=== PATIENT | female | born 1960 | race American Indian/Alaskan Native ===

== ENCOUNTER 2020-09-07 06:30 | Day surgery (SDC) | payer OTHER ==
[2020-09-07] MEDS ORDERED: SODIUM CHLORIDE 0.9% 1000 ML 1,000 ML IV SCH (07:00)
--- NOTE | 2020-09-07 08:03 | Anesthesia Consultation ---
Anesthesia Consult and Med Hx Date of service: 09/07/20 - Airway Anesthetic Teeth Evaluation: Dentures ROM Head & Neck: Adequate Mental/Hyoid Distance: Adequate Mallampati Class: Class II Intubation Access Assessment: Probably Good - Pre-Operative Health Status ASA Pre-Surgery Classification: ASA2 - Pulmonary Hx Smoking: No Hx Asthma: No Hx Respiratory Symptoms: No SOB: No COPD: No Home Oxygen Therapy: No Hx Pneumonia: No Hx Sleep Apnea: No - Cardiovascular System Hx Hypertension: No Hx Coronary Artery Disease: No Hx Heart Attack/AMI: No Hx Angina: No Hx Percutaneous Transluminal Coronary Angioplasty (PTCA): No Hx Cardia Arrhythmia: No Hx Pacemaker: No Hx Internal Defibrillator: No Hx Valvular Heart Disease: No Hx Heart Murmur: No Hx Peripheral Vascular Disease: No - Central Nervous System Hx Neuromuscular Disorder: No Hx Seizures: No CVA: No Hx Back Pain: Yes (arthritis L-5 - S1 fusion) Hx Psychiatric Problems: Yes (PTSD) - Gastrointestinal Hx Ulcer: No Hx Gastroesophageal Reflux Disease: Yes - Endocrine Hx Renal Disease: No Hx End Stage Renal Disease: No Hx Cirrhosis: No Hx Liver Disease: No Hx Insulin Dependent Diabetes: No Hx Non-Insulin Dependent Diabetes: No Hx Thyroid Disease: No Hx Hypothyroidism: No Hx Hyperthyroidism: No - Hematic Hx Anemia: No Hx Sickle Cell Disease: No - Other Systems Hx Alcohol Use: No Hx Substance Use: No Hx Cancer: No Hx Obesity: No
--- NOTE | 2020-09-07 08:05 | Anesthesia Day of Surgery ---
Anesthesia Day of Surgery - Day of Surgery Patient Examined: Yes Patient H&P Reviewed: Yes Patient is NPO: Yes
[2020-09-07] MEDS ORDERED: WATER FOR IRRIG STERILE 1,000 ML BOTTLE ONE (08:21)
[2020-09-07] MEDS ORDERED: WATER FOR IRRIG STERILE 250 ML BOTTLE IR ONE (08:21)
[2020-09-07] MEDS ORDERED: propofoL 200 MG/20 ML VIAL IV ONE ×3 (08:27→09:04)
[2020-09-07] MEDS ORDERED: LIDOCAINE MPF (2%) 20 MG/1 ML VIAL 5 ML ONE (08:27)
--- NOTE | 2020-09-07 09:23 | Procedure Note ---
Date of procedure: 09/07/20 Pre-op diagnosis: Colon Polyp screening Post-op diagnosis: other (Multiple Colon Polyps (Proximal colon, Proximal Transverse Colon and Proximal Descending Colon)/ Scattered,Extensive Diverticular disease/ Minor,Internal Hemorrhoids) Procedure: Colonoscopy with Cold Biopsy and Cold Snare,Polypectomy and Ablation of Polyps Anesthesia: MAC Surgeon: MONICA ALLEN Estimated blood loss: minimal Pathology: list Specimen disposition: to lab Condition: stable Disposition: same day (Avoid aspirin and NSAID and anticoagulants for 5 days, otherwise resume home medications. Encourage fiber intake and follow up in i to 2 weeks ([phone]).)
--- NOTE | 2020-09-07 09:24 | Operative Report ---
PROCEDURE: Colonoscopy with cold snare polypectomy and cold biopsy and ablation of polyps done. INDICATIONS: This is a 60-year-old -[place] female who had a colonoscopy done as part of colon polyp screening, possible prior history of colon polyps and diverticular disease. DESCRIPTION OF PROCEDURE: The procedure was done after getting informed consent with MAC anesthesia. Initial rectal exam was unremarkable. Instrument was passed through the rectum onto the cecum, which was identified with ileocecal valve and the appendiceal orifice. Visualization was fair to good. The cecum was also examined on the retroverted view and the terminal ileum was intubated and it showed normal mucosa. There were 2 polyps noted in the cecum, one was a small polyp, probably about 6 mm in diameter, removed by cold biopsy and the other was a 9 mm sessile polyp removed by cold snare polypectomy and then retrieved. The remaining part of the cecum and the ascending colon besides the 2 polyps was normal. There were a few scattered diverticula that were noted throughout the colon, also seen in the proximal colon. In the proximal transverse colon, there was a 7-8 mm polyp that was removed by cold biopsy. The remaining part of the transverse colon showed a few scattered diverticula. In the proximal left colon close to the splenic flexure, there were 2 polyps, one was small and the other was elongated. It was raised with injection of normal saline, but could not be grabbed properly and was fulgurated using heat as well as a small polyp that was adjacent to it. There was minimal bleeding associated with the procedure. The remaining part of the left colon showed additional diverticular disease and the rectum showed some minor internal hemorrhoid on the retroverted view. ASSESSMENT: Colon polyp screening, multiple colon polyps noted mainly in the proximal colon, in the proximal transverse colon and in the proximal left colon. There was extensive diverticular disease that was scattered throughout the colon, most pronounced in the left colon, minor internal hemorrhoids and normal ileal mucosa. PLAN: To encourage the patient to take fiber supplements, avoid aspirin and aspirin-related products for the next 4-5 days. Otherwise, resume home medication and follow up in the office in 1-2 weeks' time. Procedure was done in the GI lab with assistance of the GI lab team, which included Mimi BLANTON; Adelso gutierrez and with assistance of anesthesia. JOB# [id number] DWIGHT/PAULINA
[2020-09-07 10:28] VITALS: BP 117/74
--- NOTE | 2020-09-07 13:02 | Post Anesthesia Evaluation ---
- Post Anesthesia Evaluation Patient Participated: Yes Airway Patent: Yes Stable Respiratory Function: Yes Nausea/Vomiting: No Temp > 96.8F: Yes Pain Manageable: Yes Adequeate Hydration: Yes Anesthesia Complications: No Block Receding Appropriately: Not Applicable Patient on Ventilator: No
== END 2020-09-07 06:31 | disposition home or self-care (01) ==
LOC: GIO 06:30
DX: Z12.11 Encounter for screening for malignant neoplasm of colon (principal); D12.3 Benign neoplasm of transverse colon; K63.89 Other specified diseases of intestine; K64.8 Other hemorrhoids; K57.30 Diverticulosis of large intestine without perforation or abscess without bleeding; G43.909 Migraine, unspecified, not intractable, without status migrainosus; K21.9 Gastro-esophageal reflux disease without esophagitis; M19.90 Unspecified osteoarthritis, unspecified site; Z98.890 Other specified postprocedural states; Z91.81 History of falling; Z88.5 Allergy status to narcotic agent; Z88.0 Allergy status to penicillin; Z79.899 Other long term (current) drug therapy; Z88.6 Allergy status to analgesic agent; Z90.49 Acquired absence of other specified parts of digestive tract; Z90.710 Acquired absence of both cervix and uterus; Z86.010 Personal history of colon polyps
CPT/HCPCS: 45380; 45381; 45385; 45388; 88305; J2704; J7030

== ENCOUNTER 2022-01-03 07:36 | Day surgery (SDC) | payer OTHER ==
[~2022-01-03 07:36] MED LIST: SODIUM CHLORIDE 0.9% 1000 ML 1,000 ML IV SCH
[2022-01-03] MEDS ORDERED: fentaNYL 100 MCG/2 ML INJ ONE (09:22)
[2022-01-03] MEDS ORDERED: propofoL 200 MG/20 ML VIAL IV ONE ×2 (09:23→09:42)
--- NOTE | 2022-01-03 09:24 | Anesthesia Consultation ---
Anesthesia Consult and Med Hx Date of service: 01/03/22 - Airway Anesthetic Teeth Evaluation: Good, Dentures (upper) ROM Head & Neck: Adequate Mental/Hyoid Distance: Adequate Mallampati Class: Class II Intubation Access Assessment: Probably Good - Pre-Operative Health Status ASA Pre-Surgery Classification: ASA2 - Pulmonary Hx Smoking: Yes (remote smoking hx) Hx Respiratory Symptoms: No - Cardiovascular System Hx Hypertension: No - Central Nervous System CVA: No Hx Back Pain: Yes Hx Psychiatric Problems: Yes (PTSD) - Endocrine Hx Renal Disease: No Hx Liver Disease: No Hx Insulin Dependent Diabetes: No Hx Non-Insulin Dependent Diabetes: No Hx Thyroid Disease: No
--- NOTE | 2022-01-03 09:24 | Anesthesia Day of Surgery ---
Anesthesia Day of Surgery - Day of Surgery Patient Examined: Yes Patient H&P Reviewed: Yes Patient is NPO: Yes
[2022-01-03] MEDS ORDERED: LIDOCAINE MPF (2%) 20 MG/1 ML VIAL 5 ML ONE (09:54)
[2022-01-03] MEDS ORDERED: ONDANSETRON 4 MG/2 ML INJ ONE (09:54)
--- NOTE | 2022-01-03 10:29 | Procedure Note ---
Date of procedure: 01/03/22 Pre-op diagnosis: GERD/ H/O Colon Polyps Post-op diagnosis: other (Mild, Vicky Esophagitis/ Mild to Moderate Erosive Esophagitis/ Small,Gastric Ulcer and Gastric Erosion/ Gastritis/ Multiple, Small Proximal [place] and Proximal Tranverse colon Polyps/ Moderate, Diverticular DFisease/ Mild to Moderate Internal Hemorrhoids) Procedure: EGD with Biopsy/ Colonoscopy with Cold, Snare Polypectomy and Cold Biopsy Anesthesia: [facility] [place] Surgeon: MONICA ALLEN Estimated blood loss: minimal Pathology: list Specimen disposition: to lab Condition: stable Disposition: same day (Treat with PPI, and fluconazole. Encourage fiber intake and avoid aspirin and NSAID for 5 days; otherwise resume previous medication ad F/U in 1 to 2 weeks ([phone]).)
--- NOTE | 2022-01-03 10:31 | Operative Report ---
DATE OF SURGERY: 01/03/2022 PROCEDURE: Colonoscopy with cold snare polypectomy and cold biopsy. INDICATIONS: This is a 61-year-old -[place] female who had an EGD done prior to the colonoscopy, EGD showed some mild Vicky esophagitis, mild to moderate erosive esophagitis, a small gastric ulcer, gastric erosion and gastritis. Colonoscopy was done to make sure that there was not any recurrence of any polyps. The patient has a prior history of gastric polyps. DESCRIPTION OF PROCEDURE: Procedure was done after getting informed consent with MAC anesthesia. Initial rectal examination was unremarkable. The instrument was passed through the rectum onto the cecum, which was identified with ileocecal valve and appendiceal orifice. Cecum was also visualized on the retroverted view. The cecum showed normal mucosa. In the distal ascending colon, there was a 9 mm polyp that was removed by cold snare polypectomy and retrieved. In the proximal transverse colon, there were 2 or 3 polyps that were small, probably about 8 mm in diameter. This was also removed by cold biopsy and retrieved with minimal bleeding. There was moderate diverticular disease noted in the transverse as well as in the left colon, most pronounced in the transverse colon and the rectum showed mild to moderate internal hemorrhoid on the retroverted view. ASSESSMENT: History of colon polyps, multiple small polyps noted in the proximal colon and the proximal transverse colon. Moderate left colon and transverse colon diverticular disease, mild to moderate internal hemorrhoids. The patient will be asked to avoid aspirin and aspirin-related products for the next few days, otherwise resume home medication. Encouraged the patient to take fiber supplements. The patient will also be treated with PPI and a short course of fluconazole because of the EGD findings of Vicky esophagitis and a small gastric ulcer and gastric erosion and the patient will be asked to follow up in the office in 1-2 weeks' time. Procedure was done in the GI lab with assistance of the GI lab team, which included the GI nurse, the technical communication teacher and with assistance of anesthesia. TID: [id number] RECEIPT: [id number] DWIGHT/GOKUL
--- NOTE | 2022-01-03 10:31 | Operative Report ---
DATE OF SURGERY: 01/03/2022 PROCEDURE PERFORMED: EGD with biopsy. INDICATIONS: This is a 61-year-old -[place] female who has been having GERD symptoms. EGD was done to assess for any significant upper GI pathology. DESCRIPTION OF PROCEDURE: Procedure was done after getting informed consent with MAC anesthesia. The instrument was passed through the hypopharynx into the esophagus, which showed some mild Vicky esophagitis. Photodocumentation and biopsy was done from the mid esophagus. The esophagus also showed some [id number] distal erosive esophagitis. Photodocumentation and biopsy was also done from the distal esophagus to assess for the severity of the erosive esophagitis. The stomach showed a small antral ulcer, gastric erosion and gastritis, most pronounced in the antrum. The pylorus was patent. The duodenum in the first and second portion appeared normal. Biopsy was done from the gastric antrum and gastric body to assess for the severity of the gastric erosion and to rule out for any H. pylori gastritis. There was minimal bleeding associated with the procedure. No complications associated with the procedure. ASSESSMENT: Gastroesophageal reflux disease symptoms, mild Vicky esophagitis, mild to moderate erosive esophagitis, small gastric ulcer in the antrum, gastritis. PLAN: To treat the patient with PPI as well as a short course of fluconazole 100 mg taken once daily for 7 days. The patient will be asked to avoid aspirin and aspirin-related products. 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 The patient's procedure was done in the GI lab with assistance of the GI lab team, which included the GI nurse, the tech brazer tester and with assistance of anesthesia. TID: [id number] RECEIPT: [id number] DWIGHT/DIONTE
--- NOTE | 2022-01-03 12:57 | Post Anesthesia Evaluation ---
- Post Anesthesia Evaluation Patient Participated: Yes Airway Patent: Yes Stable Respiratory Function: Yes Nausea/Vomiting: No Temp > 96.8F: Yes Pain Manageable: Yes Adequeate Hydration: Yes Anesthesia Complications: No
[2022-01-03 13:01] VITALS: BP 127/79
== END 2022-01-03 10:52 | disposition home or self-care (01) ==
LOC: GIO 07:36
DX: Z12.11 Encounter for screening for malignant neoplasm of colon (principal); K57.30 Diverticulosis of large intestine without perforation or abscess without bleeding; K64.8 Other hemorrhoids; K21.00 Gastro-esophageal reflux disease with esophagitis, without bleeding; K29.70 Gastritis, unspecified, without bleeding; K31.9 Disease of stomach and duodenum, unspecified; D12.2 Benign neoplasm of ascending colon; K31.89 Other diseases of stomach and duodenum; K63.89 Other specified diseases of intestine; G43.909 Migraine, unspecified, not intractable, without status migrainosus; M19.90 Unspecified osteoarthritis, unspecified site; Z86.010 Personal history of colon polyps; Z88.6 Allergy status to analgesic agent; Z88.8 Allergy status to other drugs, medicaments and biological substances; Z79.899 Other long term (current) drug therapy; Z88.0 Allergy status to penicillin; Z88.5 Allergy status to narcotic agent; Z90.49 Acquired absence of other specified parts of digestive tract; Z90.710 Acquired absence of both cervix and uterus; Z91.81 History of falling; Z98.890 Other specified postprocedural states
CPT/HCPCS: 43239; 45380; 45385; 88305; J2405; J2704; J3010; J7030; 88312; 88342